=== PATIENT | male | born 1950 | race African-American/Black ===

== ENCOUNTER 2018-02-17 19:26 | Emergency (ER) | payer MEDICARE, OTHER ==
[2018-02-17 20:01] LABS: Hematocrit 41 % (42-52); Mean Corpuscular HGB Conc 32 g/dl (31-36); Mean Corpuscular Hemoglobin 23 pg (27-31); Mean Corpuscular Volume 72 fL (80-94); Red Blood Count 5.73 10^6/ul (4.00-5.40); Red Cell Distribution Width 18 % (10.5-15); White Blood Count 6.8 10^3/ul (3.5-10.8)
[2018-02-17 20:24] LABS: ABS Basophils 0.1 10^3/ul (0-0.2); ABS Eosinophils 0.3 10^3/ul (0-0.6); ABS Lymphocytes 1.4 10^3/ul (1.0-4.8); ABS Monocytes 0.5 10^3/ul (0-0.8); ABS Neutrophils 4.4 10^3/ul (1.5-7.7); ABS Nucleated RBC 0 10^3/ul; Eosinophil % 4.4 % (0-6); Lymphocyte % 21.2 % (25-47); Mean Platelet Volume 8.2 um3 (7.4-10.4); Nucleated Red Blood Cells % 0.2; Platelet Count 556 10^3/ul (150-450)
--- NOTE | 2018-02-17 22:18 | ED ---
Dizziness - HPI Summary HPI Summary: The patient is a 68 y/o M presenting to [facility] with a chief complaint of feeling lightheaded and not like himself starting today around 13:00. He had just flown into [place] this morning, and he felt alright after eating a light breakfast. He then went to his hotel and felt fatigued after eating lunch so he took a nap. 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 He then became lightheaded and diaphoretic, causing him to present to the health center on the campus, who advised him to come to the ED. He has also had some mild fevers, dehydration, and irritated sinuses, as he is just getting over a sinus infection with antibiotics. He additionally c/o LUQ pain, bloating. He denies weakness, syncope , and CP. He has hx of prostatitis, which he takes cefadroxil for, causing him to urinate and have BMs more than normal. He also has hx of HTN. He reports that he also recently had hypokalemia and hyponatremia, so he has drank broth and taken medication to relieve his symptoms. - History Of Current Complaint Chief Complaint: EDDizziness Stated Complaint: DIZZINESS/WEAKNESS Time Seen by Provider: 02/17/18 21:30 - Allergies/Home Medications Allergies/Adverse Reactions: Allergies Allergy/AdvReac Type Severity Reaction Status Date / Time chlorpromazine Allergy See Comment Verified 02/17/18 19:38 [From Thorazine] ciprofloxacin [From Cipro] Allergy Rash Verified 02/17/18 19:38 crab Allergy Nausea And Verified 02/17/18 19:38 Vomiting Sulfa (Sulfonamide Allergy Rash Verified 02/17/18 19:38 Antibiotics) Home Medications: Home Medications NK [No Home Medications Reported] 02/17/18 [History Confirmed 02/17/18] PMH/Surg Hx/FS Hx/Imm Hx Endocrine/Hematology History: Reports: Other Endocrine/Hematological Disorders - polycythemia Denies: Hx Diabetes Cardiovascular History: Reports: Hx Hypertension, Other Cardiovascular Problems/ Disorders - heart mumur History: Reports: Other Problems/Disorders - prostatitis Infectious Disease History: No Infectious Disease History: Denies: Traveled Outside the [place] in Last 30 Days - Family History Known Family History: Positive: Hypertension - Social History Alcohol Use: Occasionally Substance Use Type: Reports: None Smoking Status (MU): Never Smoked Tobacco Review of Systems Positive: Fever, Skin Diaphoresis, Other - lethargy and fatigue Positive: Other - dehydration, sinus irritation Negative: Chest Pain Positive: Abdominal Pain - LUQ, Other - bloating Neurological: Other - lightheaded feeling Negative: Weakness, Syncope All Other Systems Reviewed And Are Negative: Yes Physical Exam - Summary Physical Exam Summary: Appearance: Well-appearing, Well-nourished, lying in bed comfortably Skin: Warm, dry, no obvious rash Eyes: sclera anicteric, no conjunctival pallor ENT: mucous membranes moist, pharynx appears normal Neck: Supple, nontender Respiratory: Clear to auscultation, no signs of respiratory distress Cardiovascular: Normal S1, S2. No murmurs. Normal distal pulses in tibial and radial bilaterally. Abdomen: Soft, nontender, normal active bowel sounds present Musculoskeletal: Normal, Strength/ROM Intact Neurological: A&Ox3, awake and alert, mentation is normal, speech is fluent and appropriate Psychiatric: affect is normal, does not appear anxious or depressed Triage Information Reviewed: Yes Vital Signs On Initial Exam: Initial Vitals Temp Pulse Resp BP Pulse Ox 98.3 F 102 16 168/81 98 02/17/18 19:33 02/17/18 19:33 02/17/18 19:33 02/17/18 19:33 02/17/18 19:33 Vital Signs Reviewed: Yes Diagnostics - Vital Signs Vital Signs Temp Pulse Resp BP Pulse Ox 02/17/18 21:48 17 187/93 02/17/18 21:34 92 24 193/96 99 02/17/18 21:33 89 19 99 02/17/18 19:33 98.3 F 102 16 168/81 98 - Laboratory Lab Results: Lab Results 02/17/18 02/17/18 Range/Units 19:52 19:52 WBC 6.8 (3.5-10.8) 10^3/ul RBC 5.73 H (4.00-5.40) 10^6/ul Hgb 13.0 L (14.0-18.0) g/dl Hct 41 L (42-52) % MCV 72 L (80-94) fL MCH 23 L (27-31) pg MCHC 32 (31-36) g/dl RDW 18 H (10.5-15) % Plt Count 556 H (150-450) 10^3/ul MPV 8.2 (7.4-10.4) um3 Neut % (Auto) 65.3 (38-83) % Lymph % (Auto) 21.2 L (25-47) % [place] % (Auto) 8.0 H (0-7) % Eos % (Auto) 4.4 (0-6) % Baso % (Auto) 1.1 (0-2) % Absolute Neuts (auto) 4.4 (1.5-7.7) 10^3/ul Absolute Lymphs (auto) 1.4 (1.0-4.8) 10^3/ul Absolute Monos (auto) 0.5 (0-0.8) 10^3/ul Absolute Eos (auto) 0.3 (0-0.6) 10^3/ul Absolute Basos (auto) 0.1 (0-0.2) 10^3/ul Absolute Nucleated RBC 0 10^3/ul Nucleated RBC % 0.2 Sodium 136 (135-145) mmol/L Potassium 3.2 L (3.5-5.0) mmol/L Chloride 101 (101-111) mmol/L Carbon Dioxide 25 (22-32) mmol/L Anion Gap 10 (2-11) mmol/L BUN 18 (6-24) mg/dL Creatinine 1.19 H (0.67-1.17) mg/dL Est GFR ( Amer) 73.8 (>60) Est GFR (Non-Af Amer) 61.0 (>60) BUN/Creatinine Ratio 15.1 (8-20) Glucose 98 (70-100) mg/dL Calcium 9.7 (8.6-10.3) mg/dL Troponin I Pending Result Diagrams: 02/17/18 19:52 02/17/18 19:52 Lab Statement: Any lab studies that have been ordered have been reviewed, and results considered in the medical decision making process. - EKG 19:39 Cardiac Rate: NL - 89 BPM EKG Rhythm: Sinus Rhythm EKG Interpretation: Probable left atrial enlargement. Probable left ventricular hypertrophy. Dizzy Course/Dx - Course Course Of Treatment: The patient is a 68 y/o M presenting to [facility] with a chief complaint of feeling lightheaded and not like himself starting today around 13: 00. He had just flown into [place] this morning, and he felt alright after eating a light breakfast. He then went to his hotel and felt fatigued after eating lunch so he took a nap. 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 He then became lightheaded and diaphoretic, causing him to present to the health center on the campus, who advised him to come to the ED. He has also had some mild fevers, dehydration, and irritated sinuses, as he is just getting over a sinus infection with antibiotics. He additionally c/o LUQ pain, bloating. He denies weakness, syncope, and CP. He has hx of prostatitis, which he takes cefadroxil for, causing him to urinate and have BMs more than normal. He also has hx of HTN. He reports that he also recently had hypokalemia and hyponatremia, so he has drank broth and taken medication to relieve his symptoms. Physical exam is normal. Patient's vitals reviewed, and I am aware of elevated BP. In the ED course, lab results reveal no acute pathology. EKG shows probable left atrial enlargement and probable left ventricular hypertrophy. Patient will be diagnosed and discharged home with instructions for hypokalemia, chronic HTN, and weakness. He will follow up with his PCP at home. Return precautions given for any new or worsening symptoms. Patient understands and agrees with this plan. - Diagnoses Provider Diagnoses: Hypokalemia, Chronic hypertension, Weakness Discharge - Sign-Out/Discharge Documenting (check all that apply): Patient Departure - Patient will be discharged home. - Discharge Plan Condition: Good Disposition: HOME Patient Education Materials: Hypokalemia (ED), Chronic Hypertension (ED), Weakness (ED) Referrals: [facility] [Outside] No Primary Care Phys,NOPCP [Primary Care Provider] - Additional Instructions: The tests we did tonight did not show any problem with the heart, or an infectious problem. There were no worrisome findings, but I cannot give you a precise diagnosis. Pay attention to your body and if you develop new or worsening symptoms, in particular chest pain or trouble breathing, come back so we can check you again. Your BP is elevated, but this is common in the ED and does not require any addtional treatment presently. - Billing Disposition and Condition Condition: GOOD Disposition: Home - Attestation Statements Document Initiated by Sean: Yes Documenting Scribe: Valentina Hayes Provider For Whom Sean is Documenting (Include Credential): Dr. Rony Gallego MD Scribe Attestation: I, [email or web address] Morrowibed for Dr. Rony Gallego MD on 02/18/18 at 0146. Scribe Documentation Reviewed: Yes Provider Attestation: The documentation as recorded by the Valentina johnson accurately reflects the service I personally performed and the decisions made by me, Dr. Rony Gallego MD
[2018-02-17 22:38] VITALS: BP 175/89
== END 2018-02-17 22:38 | disposition home or self-care (01) ==
LOC: ED 19:26
DX: E87.6 Hypokalemia (principal); I10 Essential (primary) hypertension; R42 Dizziness and giddiness; R53.1 Weakness; R50.9 Fever, unspecified; R10.12 Left upper quadrant pain
CPT/HCPCS: 36415; 80048; 84484; 85025; 93005; 99285